=== PATIENT | female | born 1995 | race Caucasian/White ===

== ENCOUNTER 2024-08-31 07:17 | Emergency (ER) | payer MEDICAID, SELFPAY ==
[2024-08-31 07:18] VITALS: BP 129/73; PULSE 106; RESP 20; TEMP 37.2; O2SAT 99; BMI 37.4
[2024-08-31] MEDS: KETOROLAC 30MG/ML VIAL 30 MG IM (07:46)
--- NOTE | 2024-08-31 07:48 | PC.NURSE ---
Dr. Guevara and I at bedside. Dr Guevara performed POCUS on pt's L labia
--- NOTE | 2024-08-31 08:10 | PC.NURSE ---
This RN and Dr. Guevara at bedside for U/S sherrell lopez
--- NOTE | 2024-08-31 08:15 | ED_ITS ---
Discharge Plan Disposition Patient Disposition: Home, Self-Care Condition: Good Prescriptions Prescriptions: New sulfamethoxazole-trimethoprim [Bactrim DS] 800-160 mg tablet 1 tab PO BID 7 Days Qty: 14 0RF ketorolac 10 mg tablet 10 mg PO Q8H PRN (Reason: pain) 5 Days Qty: 15 0RF amoxicillin-pot clavulanate 875-125 mg tablet 1 tab PO Q12H 7 Days Qty: 14 0RF Referrals Follow up/Referrals: Paresh Thomas [Primary Care Provider] - See instructions Activity Restrictions/Add. Instructions Additional Instructions/Restrictions: As discussed please return to ED if your symptoms worsen. Please follow-up with your OB regarding today's visit as well as your upcoming surgery. Please take medications as prescribed. Clinical Impressions Clinical Impression: Abscess of Bartholin gland Instructions Patient Instructions: DI for Skin Abscess Print Language Print Language: Divehi Discharge ED Provider: Micah Guevara General Adult HPI General Chief complaint: Skin/Abscess/Foreign Body Stated complaint: infection in vaginal area Time Seen by Provider: 08/31/24 07:19 Mode of Arrival: Family Vehicle Source of Information: Patient Limitations: No Limitations Description of Symptoms (Recalled from ER Triage Doc. by RN): Pt c/o boil to on left labia area. States she has had this issue before and has had it drained before or warm compresses. States the warm compresses are not helping. She is scheduled for a hysterectomy on Tuesday at [facility] with Dr. Eugene, who she typically follows for [employer]. Denies any fever, body aches, chills, or drainage from cyst area. History of Present Illness HPI narrative: 29yoF patient presents with a chief complaint of a painful cyst or boil on her left labia. She reports a history of similar occurrences, which have been treated with antibiotics, compresses, or lancing in the past. The patient states that she has been experiencing sharp, stinging pain that radiates down her leg when walking, sitting, or moving. She denies any drainage, blood, or pus from the affected area and reports no pain during urination. The patient mentions that she first noticed the pain last night after waking up from sleep around 12 o'clock. She states she was perfectly fine all day before that and felt pressure and a sharp sting when she sat up out of bed. She has been using hot compresses to alleviate the pain. The patient denies any other symptoms such as fever, nausea, vomiting, chest pain, belly pain, or shortness of breath. Additionally, the patient has a history of Bartholin cysts and has had multiple instances of drainage in the past by her OB or at the emergency room. She is scheduled for a hysterectomy next week, which will be performed by her OB at [facility] in [place]. The surgery is scheduled for Tuesday. Please note that above description of symptoms, in this electronic medical record under categorization of recalled from ER triage doctor by RN are reflective of an initial nursing assessment, however, is not reflective of my full history and physical exam that was personally taken and clarified. Consequentially, this preceding description of symptoms, which may include the patient's categorized chief complaint in the EMR, do not reflect my personal clinical impression, and the ultimate description of history of present illness and patient stated complaints should be deferred to this section of the note. Unless stated otherwise or congruent with this section of the note, additional signs, symptoms, or incongruence should be interpreted as inaccurate with my clinical impression. Related Data Previous Rx's ?Medication ?Instructions ?Recorded amoxicillin 875 mg-potassium 1 tab PO Q12H 7 days #14 tabs 08/31/24 clavulanate 125 mg tablet ketorolac 10 mg tablet 10 mg PO Q8H PRN pain 5 days #15 08/31/24 tabs sulfamethoxazole 800 1 tab PO BID 7 days #14 tabs 08/31/24 mg-trimethoprim 160 mg tablet (Bactrim DS) Allergies Allergy/AdvReac Type Severity Reaction Status Date / Time tramadol AdvReac Intermediate Nausea Verified 08/31/24 07:44 [facility] Disclaimer: The information contained in this section may have been updated after the patient was seen, as this information can be updated by other users. Social History Smoking Status: Current every day smoker alcohol intake: never current occupational status: other Travel in the last 8 weeks: None ROS Obtained: Yes Systems reviewed as appropriate & no additional complaints except as documented Physical Exam General General appearance: alert and in no apparent distress Head Head exam: atraumatic and normocephalic Eye Eye exam: Present normal appearance and EOMI ENT ENT exam: Present normal exam Neck Neck exam: Present normal inspection Chest Chest inspection: Present normal inspection and symmetric chest wall rise Respiratory Respiratory exam: Absent respiratory distress Cardiovascular Cardiovascular exam: Present regular rate Abdominal Exam Abdominal exam: Absent distention External exam: Present tenderness, swelling and other (Swelling consistent with Bartholin cyst noted left lower introitus at 4:00 positioning. No noted erythema, no noted drainage, no fluctuance) Extremities Exam Extremities exam: Present normal inspection and full ROM; Absent tenderness Back Exam Back exam: Present normal inspection Neurological Exam Neurological exam: Present alert and oriented X3 Psychiatric Psychiatric exam: Present normal affect and normal mood Skin Skin exam: Present warm, dry, intact and normal color; Absent rash Medical Decision Making Medical Records Medical records reviewed: Yes I reviewed the patient's medical records. Screening: Per USPSTF and CDC recommendations, given the prevalence of disease in our region, it is our hospital?s policy to screen for HIV and viral Hepatitis for all patients aged 18 and over and those with ongoing risk factors. Jules Inquiry Pt receiving controlled substance: No Vital Signs: 08/31/24 07:18 Temperature 98.9 F Temperature Source Oral Pulse Rate [Right] 106 H Respiratory Rate 20 Blood Pressure [Left Arm] 129/73 Blood Pressure Mean [Left Arm] 91 Blood Pressure Source [Left Arm] Automatic Cuff 02 Sat by Pulse Oximetry 99 Oxygen Delivery Method Room Air Orders (Tests/Meds): ED MEDICATIONS Discontinued Medications Generic Name Dose Route Start Last Admin Trade Name Freq PRN Reason Stop Dose Admin Ketorolac Tromethamine 30 mg 08/31/24 07:43 08/31/24 07:46 Ketorolac 30mg/Ml Vial IM 08/31/24 07:44 30 mg ONCE ONE Administration Medical Decision Narrative: Patient with history and exam per above presenting for evaluation of suspected Bartholin cyst, history of recurrent Bartholin cysts. Diagnoses considered include Bartholin cyst, abscess, lipoma ED workup and treatment included: As above. Parer-ah-tipf ultrasound at bedside performed by myself, no noted significant area of abscess, no walled off structure. No noted cellulitis. Given that there is no structure amenable to incision and drainage at this time deferred further management beyond sympt omatic care with anti-inflammatory and pain management. Patient given Toradol. Will prescribe antibiotics as well as Toradol for symptomatic care and antibiotic coverage of recurrent abscess. Patient to continue using hot compresses at home. Given instructions to return to ED if symptoms worsen. She is agreeable with this plan. She also has good follow-up with her OB and her scheduled surgery for her hysterectomy on Tuesday. Should her symptoms worsen she states she will come back to ER for likely incision and drainage of Bartholin cyst at that time. My clinical impression at this time is most consistent with Bartholin cyst I discussed my clinical impression with patient and answered all questions. At this time, the evidence for any other entities in the differential is insufficie nt to warrant any further testing or ED observation. This was explained to the patient. The patient was advised that persistent or worsening symptoms require further evaluation. Critical Care Critical Care Time Critical Care Time: No
[2024-08-31 08:46] VITALS: BP 129/73; PULSE 81; RESP 13; TEMP 36.7
== END 2024-08-31 08:47 | disposition home or self-care (01) ==
PROVIDERS: Emergency Provider Student in an Organized Health Care Education/Training Program; PCP Pediatrics
DX: N75.1 Abscess of Bartholin's gland (principal)
CPT/HCPCS: 96372; 99283; J1885